=== PATIENT | female | born 1975 | race Caucasian/White ===

== ENCOUNTER 2018-08-14 11:50 | Emergency (ER) | payer OTHER ==
[~2018-08-14] VITALS: Ht 170.2 cm; Wt 120.0 kg
[2018-08-14 12:43] LABS: BASOPHILS # (AUTO) 0.09 x10^3/uL (0-0.1); BASOPHILS % (AUTO) 1 % (0-1); EOSINOPHILS # (AUTO) 0.14 x10^3/uL (0-0.4); EOSINOPHILS % (AUTO) 1 % (1-7); LYMPHOCYTES # (AUTO) 3.75 x10^3/uL (1-3.4); LYMPHOCYTES % (AUTO) 34 % (22-44); MD NO; MEAN CORPUSCULAR HEMOGLOBIN 26.9 pg (27.0-34.8); MEAN CORPUSCULAR HGB CONC 31.5 g/dL (32.4-35.8); MEAN CORPUSCULAR VOLUME 85.2 fL (80-100); MEAN PLATELET VOLUME 7.5 fL (7.4-10.4); MONOCYTES # (AUTO) 0.39 x10^3/uL (0.2-0.8); MONOCYTES % (AUTO) 4 % (2-9); NEUTROPHILS # (AUTO) 6.61 x10^3/uL (1.8-6.8); NEUTROPHILS % (AUTO) 60 % (42-75); PLATELET COUNT 320 x10^3/uL (130-400); RED BLOOD COUNT 5.29 x10^6/uL (3.82-5.3); RED CELL DISTRIBUTION WIDTH 13.9 % (9.6-15.2)
[2018-08-14 12:51] LABS: ALBUMIN 3.8 g/dL (3.4-5.0); ANION GAP 7 mmol/L (5-15); CALCIUM 8.8 mg/dL (8.5-10.1); CHLORIDE 104 mmol/L (98-107); CREATININE 0.79 mg/dL (0.55-1.02)
--- NOTE | 2018-08-14 12:56 | NUR ---
TO ROOM FROM LOBBY. NAD.
--- NOTE | 2018-08-14 13:15 | NUR ---
First contact with pt. Pt c/o feeling like she is spinning with blurred vision intermittently x9 months. Pt states this particular incident started Friday. Pt denies pain, states nausea when she is lying flat. Pt placed in gown, positioned for comfort in bed, declines warm blanket. Continuous heart, oxygen and BP monitors applied, all safety measures observed.
--- NOTE | 2018-08-14 13:28 | NUR ---
Dr. Morales at bedside to evaluate pt.
[2018-08-14] MEDS ORDERED: MECLIZINE CHEWABLE 25 MG TAB ONE (13:52)
--- NOTE | 2018-08-14 13:59 | NUR ---
Pt medicated per MAR, denies other needs.
[2018-08-14] MEDS ORDERED: MECLIZINE CHEWABLE 25 MG TAB PO ONE (14:00)
--- NOTE | 2018-08-14 14:00 | NUR ---
Pt to CT via [facility].
--- NOTE | 2018-08-14 14:09 | NUR ---
Pt back from CT, resting in bed, RONALN.
--- NOTE | 2018-08-14 14:27 | NUR ---
Pt states episode of nausea just after having CT, states nausea now resolved, denies needs.
--- NOTE | 2018-08-14 15:48 | NUR ---
Pt reports that dizziness and nausea are resolved. Pt states she is feeling much better, ready for dc. Awaiting paperwork.
== END 2018-08-14 16:16 | disposition home or self-care (01) ==
LOC: ED 14:34 → MERGE 14:34 → ED 16:16
DX: R42 Dizziness and giddiness (principal)
CPT/HCPCS: 36415; 70486; 80048; 82040; 85025; 93005; 99284

== ENCOUNTER 2019-04-06 10:46 | Outpatient (CLI) | payer BC ==
[~2019-04-06 10:46] MED LIST: AZIT500T10 PO; CEFD300C37 PO; GUAI600T31 PO
== END 2019-04-06 23:59 | disposition home or self-care (01) ==
LOC: CFH 10:46
PROVIDERS: ATTEND Internal Medicine
DX: R05 Cough (principal)
CPT/HCPCS: 71046